=== PATIENT | female | born 1955 | race Caucasian/White ===

== ENCOUNTER 2017-09-20 08:24 | Inpatient (IN) | payer OTHER ==
[2017-09-19 09:29] VITALS: BMI 28.3
[2017-09-20 09:10] LABS: #Eosinphils 0.1 thou/uL (0.0-0.7); #Lymphocytes 2.6 thou/uL (1.20-3.40); #Monocytes 0.5 thou/uL (0.11-0.59); #Neutrophils 2.4 thou/uL (1.40-6.50); %Basophils 0.7 % (0.0-1.0); %Eosinophils 1.3 % (0.0-10.0); %Lymphocytes 46.9 % (21.0-51.0); %Monocytes 8.7 % (0.0-10.0); Hematocrit 42.2 % (36.0-47.0); Mean Platelet Volume 10.3 fL (7.4-10.4); Red Blood Cell (RBC) Count 4.55 mill/uL (4.20-5.40); White Blood Cell (WBC) Count 5.6 thou/uL (4.8-10.8)
[2017-09-20] MEDS ORDERED: Ketorolac Tromethamine 30 MG/ML VIAL ONE (09:10)
[2017-09-20] MEDS ORDERED: CEFAZOLIN/Water 2 GM/20 ML SYRINGE ONE (09:11)
[2017-09-20 09:27] LABS: Anion Gap 11 mmol/L (10-20); BUN (Urea Nitrogen) 25 mg/dL (9.8-20.1); Calc. Creatinine Clearance 96 mL/min (70-130); Calcium 10.7 mg/dL (7.8-10.44); Carbon Dioxide 27 mmol/L (22-29); Chloride 105 mmol/L (98-107); Estimated GFR-MDRD 71
[2017-09-20] MEDS ORDERED: Bupivacaine PF 0.5% 30 ML VIAL ONE (10:27)
[2017-09-20] MEDS ORDERED: Lidocaine 2% w/Epinephrine 1:200K 20 ML VIAL ONE (10:27)
[2017-09-20] MEDS ORDERED: Fentanyl 100 MCG/2 ML VIAL ONE ×2 (10:30→14:49)
[2017-09-20] MEDS ORDERED: Midazolam HCl 2 mg/2 ml Vial ONE (10:30)
[2017-09-20] MEDS ORDERED: PHENYLEPHRINE-NS 100 MCG/ML 10 ML SYRINGE ONE ×2 (11:00)
[2017-09-20] MEDS ORDERED: Ondansetron HCl/PF 4 MG/2 ML Vial ONE (11:00)
[2017-09-20] MEDS ORDERED: Metoclopramide HCl 10 MG/2 ML VIAL ONE (11:00)
[2017-09-20] MEDS ORDERED: Lidocaine 1% PF 5 ML VIAL ONE (11:00)
[2017-09-20] MEDS ORDERED: Propofol 200 MG/20 ML VIAL ONE (11:00)
[2017-09-20] MEDS ORDERED: Dexamethasone 20 MG/5 ML VIAL ONE (11:00)
[2017-09-20] MEDS ORDERED: Succinylcholine Chloride 20 MG/ML 10 ml SYRINGE FS ONE (11:00)
[2017-09-20] MEDS ORDERED: diphenhydrAMINE 50 MG/ML VIAL ONE (11:00)
[2017-09-20] MEDS ORDERED: ePHEDrine/0.9% NaCl/PF SYRINGE 50 mg/10 ml ONE (11:00)
[2017-09-20] MEDS ORDERED: Glycopyrrolate 0.2 MG/ML 5 ML SYRINGE ONE (11:00)
[2017-09-20] MEDS ORDERED: Lorazepam 1 MG TAB PO PRN (11:16)
[2017-09-20] MEDS ORDERED: Albumin 5% 500 ML ONE (11:33)
--- NOTE | 2017-09-20 12:12 | EKG ---
Test Reason : PREOP Blood Pressure : / mmHG Vent. Rate : 070 BPM Atrial Rate : 070 BPM P-R Int : 146 ms QRS Dur : 090 ms QT Int : 420 ms P-R-T Axes : 025 -27 009 degrees QTc Int : 453 ms Normal sinus rhythm Normal ECG No previous ECGs available Confirmed by DR. Nicanor WALTON ([id number]) on 09/20/2017 12:12:19 PM Referred By: SARA Confirmed By:DR. Nicanor WALTON
[2017-09-20] MEDS ORDERED: Promethazine HCl 25 MG/ML VIAL IM PRN (15:48)
[2017-09-20] MEDS ORDERED: Morphine 2 MG/ML SYRINGE SLOW IVP PRN (15:48)
[2017-09-20] MEDS ORDERED: hydrALAZINE 20 MG/ML VIAL SLOW IVP PRN (15:48)
[2017-09-20] MEDS ORDERED: Calcium Carbonate 500 MG ChewTAB PO PRN (15:48)
[2017-09-20] MEDS ORDERED: Mag-Al 1200 mg/1200 mg/30 ML UDCUP PO PRN (15:48)
[2017-09-20] MEDS ORDERED: Dextrose 5% in Water 1,000 ML IV PRN (15:48)
[2017-09-20] MEDS ORDERED: Dextrose 50% Abboject 50 ML SYRINGE SLOW IVP PRN (15:48)
[2017-09-20] MEDS: Ondansetron HCl/PF 4 MG/2 ML Vial IVP PRN (16:56)
[2017-09-20] MEDS: Ketorolac Tromethamine 30 MG/ML VIAL IVP SCH ×3 (16:56→23:04)
[2017-09-20] MEDS: D5 1/2 NS w/20 mEq KCL 1,000 ML IV SCH (17:16)
[2017-09-20] MEDS: Famotidine/PF 20 mg/2ml Vial SLOW IVP SCH (20:46)
[2017-09-20] MEDS: Famotidine 20 MG TAB PO SCH (20:47)
[2017-09-20] MEDS ORDERED: OLANZapine 2.5 MG TAB PO SCH (21:00)
[2017-09-20] MEDS ORDERED: Enoxaparin Sodium 40 MG/0.4 ML SYRINGE SC SCH (21:00)
[2017-09-20] MEDS: Morphine 2 MG/ML SYRINGE SLOW IVP PRN (21:43)
[2017-09-21] MEDS: Ondansetron HCl/PF 4 MG/2 ML Vial IVP PRN (03:18)
[2017-09-21] MEDS: Morphine 2 MG/ML SYRINGE SLOW IVP PRN ×3 (03:18→10:10)
[2017-09-21] MEDS: D5 1/2 NS w/20 mEq KCL 1,000 ML IV SCH ×2 (03:28→10:41)
[2017-09-21] MEDS: Ketorolac Tromethamine 30 MG/ML VIAL IVP SCH ×2 (06:08→12:37)
[2017-09-21 06:42] LABS: #Basophils 0.2 thou/uL (0.0-0.2); #Lymphocytes 1.2 thou/uL (1.20-3.40); #Monocytes 0.7 thou/uL (0.11-0.59); #Neutrophils 8.9 thou/uL (1.40-6.50); %Basophils 1.7 % (0.0-1.0); %Eosinophils 0.1 % (0.0-10.0); %Monocytes 6.5 % (0.0-10.0); Hematocrit 39.3 % (36.0-47.0); Mean Platelet Volume 10.7 fL (7.4-10.4); Red Blood Cell (RBC) Count 4.31 mill/uL (4.20-5.40)
[2017-09-21 07:02] LABS: ALT (SGPT) 77 U/L (8-55); AST (SGOT) 80 U/L (5-34); Alkaline Phosphatase 61 U/L (40-150); Anion Gap 8 mmol/L (10-20); BUN (Urea Nitrogen) 13 mg/dL (9.8-20.1); Bilirubin, Total 0.4 mg/dL (0.2-1.2); Calc. Creatinine Clearance 99 mL/min (70-130); Calcium 9.7 mg/dL (7.8-10.44); Carbon Dioxide 29 mmol/L (22-29); Chloride 101 mmol/L (98-107); Estimated GFR-MDRD 74; Globulin 2.8 g/dL (2.4-3.5); Protein, Total 6.8 g/dL (6.0-8.3)
[2017-09-21 08:09] VITALS: TEMP 98.3
[2017-09-21] MEDS: Famotidine 20 MG TAB PO SCH (08:28)
[2017-09-21] MEDS: Famotidine/PF 20 mg/2ml Vial SLOW IVP SCH (08:28)
[2017-09-21] MEDS ORDERED: lamoTRIgine 100 MG TAB PO SCH (09:00)
[2017-09-21 12:40] VITALS: BP 109/71
--- OUTSIDE RECORDS SUMMARY | 2017-09-22 02:39 | XMS | Clinical Summary ---
:1955 Author Organization [facility] Address [address] [place] [id number] Phone Care Team Providers Name Role Phone Asked, No Primary Care Provider Unavailable Allergies Not on File Current Medications Not on file Active Problems Not on file Encounters Date Type Specialty Care Team Description 09/08/2017 Hospital Encounter Gastroenterology Nadeem Townsend MD 09/08/2017 Procedure Pass Gastroenterology 09/08/2017 Surgery Gastroenterology Nadeem Townsend, MOTILITY STUDY, ESOPHAGUS, USING MANOMETRY from Last 3 Months Social History Tobacco Use Types Packs/Day Years Used Date Never Assessed Sex Assigned at Date Recorded Not on file Last Filed Vital Signs Not on file Plan of Treatment Not on file Results Not on filefrom Last 3 Months Insurance Payer Benefit Plan / Group Subscriber ID Type Phone Address [facility] CHOICE/CHOICE + [id number] HMO/PPO Home: [address] [phone] [place], [place] [id number]
--- NOTE | 2017-09-23 05:10 | OP ---
DATE OF OPERATION: 09/20/2017 PREOPERATIVE DIAGNOSES: Large hiatal hernia with significant gastroesophageal reflux disease, possi ble impaired esophageal peristalsis. POSTOPERATIVE DIAGNOSES: Large hiatal hernia with significant gastroesophageal reflux disease, poss ible impaired esophageal peristalsis, with finding of a 6 x 4 cm hiatal hernia with most of the stom ach up within the chest. OPERATION PERFORMED: Laparoscopic Ashwin fundoplication with mesh utilizing an 8 x 6 cm Strattice p liable mesh patch. SURGEON: Nick Puentes MD ANESTHESIA: General endotracheal. INDICATIONS: The patient is a 61-year-old, white female. She has a long history of gastroesophagea l reflux disease. She has a recognized large hiatal hernia with over half of the stomach up within the chest. Recent esophageal manometry revealed potentially impaired esophageal peristalsis; benjamineve r, the patient has absolutely no symptoms of dysphagia, and it is felt that these readings may simpl y be related to the extent of her reflux and the size of her hiatal hernia. She is taken to the ope rating room at this time for a loose/floppy Ashwin fundoplication. DESCRIPTION OF OPERATION: Informed consent was obtained. The patient was taken to the operating ro om where general endotracheal anesthesia was obtained with the patient in supine position. The abdo men was prepped with ChloraPrep and draped in sterile fashion. Local anesthetic was infiltrated, an d 5 mm supraumbilical incision was created, through which, a Veress needle was passed into the perit vallecillo cavity. A pneumoperitoneum was established using carbon dioxide up to a pressure of 15 mmHg. A 5 mm trocar port was passed through this same incision. Laparoscopic camera was passed through t his port. Under direct vision, 4 additional ports were placed including an 11 mm left epigastric po rt, a 5 mm right epigastric port, and bilateral lower subcostal 5 mm ports. A triangle retractor wa s passed into the lateral right port and used to elevate the left lobe of the liver. Attention was turned to the hiatus. She had a very large hiatal defect. This was measured, this proved to be 6 x 4 cm. The majority of the stomach was present within the chest. The stomach was largely able to b e reduced into the abdomen. There appeared to be hiatal hernia sacs on both the patient's left and right of the esophagus. Dissection was begun along the lesser curvature. The pars flaccida was incised and dissection was c arried down onto the right mercy. The peritoneal lining over the mercy was dissected anteriorly, free ing the anterior aspect of the hiatus. Attention was then turned to the left side. With the stomac h reduced, I was able to identify the peritoneum over the right mercy and this was incised also using the LigaSure device. Using meticulous dissection, I dissected the hernia sac out of the hiatal her natalie, taking care to avoid a pleural injury. I carefully dissected the hernia sac both on the left a nd the right side of the esophagus, reducing this all intra-abdominal. I then turned my attention t o the esophagus and I was able to dissect a retroesophageal window, through which, I placed the 0.25 -inch Grayland drain, which I used for continued retraction. I dissected the hernia sac off the ante rior aspect of the stomach and esophagus and removed this from within the abdomen. I then turned my attention to the greater curvature of the stomach, and I dissected the omental and vascular tissue off the greater curvature in an ascending fashion using the LigaSure device, freeing the upper one-third of the stomach. The entire fundus and cardia were meticulously cleared. A #50 bougie was then passed down through the esophagus into the stomach without difficulty. Using this as a guide, I closed the hiatal defect with 3 posterior sutures and 1 anterior suture using 0 B ralon with the other suture device. This was found to leave adequate laxity around the esophagus to minimize the chance of any dysphagia. We then obtained the Strattice patch. This was soaked in water for 2 minutes and then trimmed to ap propriate size. I trimmed it down to a length of 6 x 7 cm. I cut the appropriate esophageal groove into the superior aspect and passed the patch into the abdominal cavity. This was positioned so as to entirely cover the posterior aspect of the hiatal closure and positioned so as to have the tails come up along both sides of the hiatus. This was secured in place using 3 sutures of 0 Bralon, whi ch were used to affix the tails on either side and the posterior aspect to the hiatal closure. I th en placed 2 interrupted sutures of 0 Ethibond so as to fix the patch tails together over the anterio r aspect. The patch had excellent confirmation over the hernia repair. With the bougie still in place, I passed the fundus in the retroesophageal window and fashioned a wr ap that was clearly very lax around the esophagus. The wrap was constructed by placing 3 sutures of 0 Bralon between the stomach on either side of the esophagus. The superior and inferior sutures in corporated bites of the anterior aspect of the esophagus as well. I then placed 2 collar sutures of 0 Bralon between the wrap and the hiatus at about the 10 o'clock a nd 2 o'clock radians. The area was irrigated and all irrigant was aspirated. There had never been any substantial bleedin g during the course of the operation. The fascia at the 11 mm port site was closed with 0 Vicryl lucas ture using a GraNee needle. All ports and instruments were removed under direct vision. Pneumoperi toneum was carefully evacuated. A 0.25% Marcaine with epinephrine was infiltrated in each port site and skin edges approximated with 4-0 Monocryl subcuticular suture. Dermabond was placed externally . There were no complications. The patient tolerated the procedure well and was taken to recovery room in stable condition.
== END 2017-09-21 15:45 | disposition home or self-care (01) | DRG 328 ==
LOC: SDC 08:24 → SURG A 11:11
PROVIDERS: ADMIT Specialist; ATTEND Specialist
PROC: 0DV44ZZ Restriction of Esophagogastric Junction, Percutaneous Endoscopic Approach (ICD-10-PCS; principal; 2017-09-20)
PROC: 0BUT4JZ Supplement Diaphragm with Synthetic Substitute, Percutaneous Endoscopic Approach (ICD-10-PCS; 2017-09-20)
DX: K21.9 Gastro-esophageal reflux disease without esophagitis (principal); F32.9 Major depressive disorder, single episode, unspecified; K44.9 Diaphragmatic hernia without obstruction or gangrene
CPT/HCPCS: 36415; 80048; 80053; 85025; 93005; 93010; J0131; J1100; J1200; J1650; J1885; J2001; J2250; J2270; J2405; J2550; J2704; J2765; J3010; P9045; Q4130; S0020; S0028